=== PATIENT | male | born 1960 | race Caucasian/White ===

== ENCOUNTER 2022-04-02 17:10 | Observation (INO) | payer BC ==
[2022-04-02 17:41] LABS: #Basophils 0.1 10x3/uL (0.0-0.2); #Eosinphils 0.2 10x3/uL (0.0-0.5); #Monocytes 0.9 10x3/uL (0.0-1.1); #Neutrophils 7.5 10x3/uL (1.5-8.4); %Eosinophils 1.9 % (0.0-6.0); %Lymphocytes 17.1 % (18.0-47.0); %Monocytes 8.3 % (0.0-10.0); %Neutrophils 70.9 % (40.0-75.0); Hemoglobin 15.3 g/dL (13.5-17.5); Mean Corpuscular HGB CONC 32.3 g/dL (32.0-36.0); Mean Corpuscular Hemoglobin 26.6 pg (27.0-33.0); Mean Corpuscular Volume 82.3 fl (81.2-95.1); Mean Platelet Volume 9.2 fl (7.4-10.4); Platelet Count 350 10x3/uL (150-450); RBC Distribution Width 15.7 % (11.5-14.5); Red Blood Cell (RBC) Count 5.76 10x6/uL (4.32-5.72); White Blood Cell (WBC) Count 10.5 10x3/uL (3.5-10.5)
[2022-04-02] MEDS ORDERED: Aspirin Chewable 81 MG TAB ONE (17:56)
[2022-04-02] MEDS ORDERED: Nitroglycerin 0.4 MG TAB 1 EACH ONE (17:56)
[2022-04-02 17:58] LABS: ALT (SGPT) 41 U/L (8-55); AST (SGOT) 49 U/L (5-34); Albumin 4.5 g/dL (3.4-4.8); Alkaline Phosphatase 46 U/L (40-110); Anion Gap 16 mmol/L (10-20); BUN (Urea Nitrogen) 25 mg/dL (8.4-25.7); Bilirubin, Total 0.5 mg/dL (0.2-1.2); Calc. Creatinine Clearance 0 mL/min (70-130); Carbon Dioxide 27 mmol/L (23-31); Chloride 101 mmol/L (98-107); Glucose 91 mg/dL (80-115); Potassium 4.5 mmol/L (3.5-5.1); Protein, Total 7.5 g/dL (5.8-8.1); Sodium 139 mmol/L (136-145)
[2022-04-02] MEDS ORDERED: Morphine 4 MG/ML VIAL ONE (18:05)
[2022-04-02] MEDS ORDERED: Ondansetron PF 4 MG/2 ML Vial ONE (18:06)
[2022-04-02] MEDS ORDERED: Acetaminophen 500 MG TAB ONE (19:11)
[2022-04-02] MEDS ORDERED: Senokot S 8.6-50 MG TAB PO PRN (20:10)
[2022-04-02] MEDS ORDERED: Guaifenesin DM 100-10/5 ML UDCUP PO PRN (20:10)
[2022-04-02] MEDS ORDERED: Zolpidem Tartrate 5 MG TAB PO PRN (20:10)
[2022-04-02] MEDS ORDERED: Ondansetron PF 4 MG/2 ML Vial IVP PRN (20:10)
[2022-04-02] MEDS ORDERED: Acetaminophen 325 MG TAB PO PRN (20:10)
[2022-04-02] MEDS ORDERED: Calcium Carbonate 500 MG ChewTAB PO PRN (20:10)
[2022-04-02] MEDS ORDERED: HYDROcodone/Acetaminophen 5/325 mg Tablet PO PRN (20:10)
[2022-04-02] MEDS ORDERED: ALPRAZolam 1 MG TAB PO PRN (20:14)
[2022-04-02] MEDS ORDERED: Lactated Ringer's 500 ML IV SCH (20:15)
[2022-04-02 20:22] VITALS: BMI 34.9
[2022-04-02] MEDS: Lactated Ringer's 500 ML IV SCH (20:48)
[2022-04-02] MEDS ORDERED: Fish Oil 1,000 MG CAP PO SCH (21:00)
[2022-04-02] MEDS ORDERED: Famotidine/PF 20 mg/2ml Vial SLOW IVP SCH (21:00)
[2022-04-02] MEDS: Nitroglycerin 0.4 MG TAB (25 Tab Bottle) SL PRN ×2 (21:24→21:30)
[2022-04-02] MEDS ORDERED: Morphine 2 MG/ML VIAL SLOW IVP SCH (22:00)
[2022-04-02] MEDS ORDERED: Lidocaine Viscous Sol 2% 15 ml UD Cup ONE (22:26)
[2022-04-02 22:48] LABS: CKMB 6.4 ng/mL (0-6.6)
[2022-04-02] MEDS ORDERED: Enoxaparin Sodium 120 MG/0.8 ML SYRINGE SC SCH (23:00)
[2022-04-02] MEDS ORDERED: Metoprolol Tartrate 5 MG/5 ML VIAL IVP SCH (23:00)
[2022-04-02] MEDS ORDERED: Lidocaine 2% Viscous Solution 10 ML, Aluminum & Magnesium Hydroxide 30 ML SSW SCH (23:00)
[2022-04-02] MEDS ORDERED: Lactated Ringer's 1,000 ML IV SCH (23:45)
[2022-04-03] MEDS ORDERED: Ketorolac Tromethamine 30 MG/ML VIAL IVP SCH (00:15)
[2022-04-03] MEDS: Morphine 2 MG/ML VIAL SLOW IVP PRN ×3 (02:01→09:19)
[2022-04-03] MEDS ORDERED: Morphine 2 MG/ML VIAL SLOW IVP SCH (02:30)
[2022-04-03 05:39] LABS: Anion Gap 14 mmol/L (10-20); BUN (Urea Nitrogen) 27 mg/dL (8.4-25.7); Calc. Creatinine Clearance 130 mL/min (70-130); Calcium 9.2 mg/dL (7.8-10.44); Carbon Dioxide 27 mmol/L (23-31); Cardiac Risk 4.6 (Less than 4.5); Chloride 102 mmol/L (98-107); Cholesterol 151 mg/dl (< 200 Desired); HDL Cholesterol 33 mg/dL (>60 Neg Risk); LDL Cholesterol, Calculated 64 mg/dL; Lipase 63 U/L (8-78); Potassium 3.7 mmol/L (3.5-5.1); Sodium 139 mmol/L (136-145); Triglycerides 268 mg/dL (Less than 150)
[2022-04-03 05:45] LABS: Glucose 54 mg/dL (80-115)
[2022-04-03 06:11] LABS: SARS-CoV-2 NAA Rapid Test Not Detected (NotDetected)
[2022-04-03 06:53] LABS: CKMB 6.1 ng/mL (0-6.6)
[2022-04-03] MEDS ORDERED: metFORMIN XR 500 MG TAB PO SCH ×2 (08:00→17:00)
[2022-04-03] MEDS ORDERED: Communication Order-Pharmacy FS SCH (08:45)
[2022-04-03] MEDS ORDERED: Bupropion 150 MG XL TAB PO SCH (09:00)
[2022-04-03] MEDS ORDERED: Finasteride 5 MG TAB PO SCH (09:00)
[2022-04-03] MEDS ORDERED: Aspirin 81 mg Enteric Coated Tablet PO SCH (09:00)
[2022-04-03] MEDS ORDERED: Cholecalciferol 1,000 UNITS (25 MCG) TAB PO SCH (09:00)
[2022-04-03] MEDS ORDERED: Rosuvastatin 10 MG TAB PO SCH (09:00)
[2022-04-03] MEDS ORDERED: Losartan Potassium 50 MG TAB PO SCH (09:00)
[2022-04-03] MEDS ORDERED: Clopidogrel Bisulfate 75 MG TAB PO SCH (09:00)
[2022-04-03] MEDS ORDERED: Tamsulosin HCl 0.4 MG CAP PO SCH (09:00)
[2022-04-03] MEDS ORDERED: Empagliflozin 25 MG TAB PO SCH (09:00)
[2022-04-03] MEDS ORDERED: Enoxaparin Sodium 40 MG/0.4 ML SYRINGE SC SCH ×2 (09:00→21:00)
[2022-04-03] MEDS ORDERED: Fenofibrate Nanocrystallized 145 MG TAB PO SCH (09:00)
[2022-04-03] MEDS ORDERED: Multivit, Therapeutic 1 TAB PO SCH (09:00)
[2022-04-03] MEDS ORDERED: Bisoprolol Fumarate 5 MG TAB PO SCH (09:00)
[2022-04-03] MEDS ORDERED: Iopamidol 300 61% 100 ML VIAL FS ONE (09:11)
[2022-04-03 09:22] LABS: CKMB 6.4 ng/mL (0-6.6)
[2022-04-03 09:55] LABS: INR-International Normal Ratio 1.1; PTT 30.9 sec (22.0-33.0); Prothrombin Time 11.5 sec (9.5-12.1)
[2022-04-03] MEDS ORDERED: Bivalirudin 250 MG VIAL ONE (10:18)
[2022-04-03] MEDS ORDERED: Nitroglycerin 50 MG/250 ML BOT 250 ML ONE (10:20)
[2022-04-03] MEDS ORDERED: Heparin 10,000 UNITS/ 10 ML VIAL ONE ×3 (10:20→12:02)
[2022-04-03] MEDS ORDERED: Lidocaine 1% (PF) 30 ML VIAL ONE (10:21)
[2022-04-03] MEDS ORDERED: Verapamil 5 MG/2 ML VIAL ONE (10:21)
[2022-04-03] MEDS ORDERED: Midazolam HCl 2 mg/2 ml Vial ONE ×2 (10:22→11:33)
[2022-04-03] MEDS ORDERED: Fentanyl 100 MCG/2 ML VIAL ONE (10:22)
[2022-04-03 11:02] LABS: Troponin I 0.176 ng/mL (< 0.028)
[2022-04-03] MEDS: Lactated Ringer's 500 ML IV SCH ×2 (11:24→11:25)
[2022-04-03] MEDS ORDERED: Nitroglycerin 0.4 MG TAB (25 Tab Bottle) SL PRN (12:01)
[2022-04-03] MEDS ORDERED: Acetaminophen/Codeine 30-300mg Tablet PO PRN ×2 (12:01)
[2022-04-03] MEDS ORDERED: Sodium Chloride 0.9% 200 ML IV PRN (12:01)
[2022-04-03 19:00] VITALS: TEMP 97.9
[2022-04-03 19:56] VITALS: BP 116/68
[2022-04-03] MEDS ORDERED: TICAGRELOR 90 MG TABLET PO SCH (21:00)
[2022-04-04] MEDS ORDERED: Empagliflozin 25 MG TAB PO SCH (09:00)
== END 2022-04-03 19:30 | disposition home or self-care (01) ==
LOC: CSHERS 17:10 → CSHTELE 19:48
PROVIDERS: ADMIT Student in an Organized Health Care Education/Training Program; ATTEND Emergency Medicine
DX: I25.110 Atherosclerotic heart disease of native coronary artery with unstable angina pectoris (principal); I10 Essential (primary) hypertension; E78.5 Hyperlipidemia, unspecified; K21.9 Gastro-esophageal reflux disease without esophagitis; E11.9 Type 2 diabetes mellitus without complications; R91.8 Other nonspecific abnormal finding of lung field; Z79.899 Other long term (current) drug therapy; Z79.82 Long term (current) use of aspirin; Z95.5 Presence of coronary angioplasty implant and graft; N40.0 Benign prostatic hyperplasia without lower urinary tract symptoms; Z87.891 Personal history of nicotine dependence; Z79.84 Long term (current) use of oral hypoglycemic drugs; N19 Unspecified kidney failure; Z79.02 Long term (current) use of antithrombotics/antiplatelets; Z20.822 Contact with and (suspected) exposure to COVID-19
CPT/HCPCS: 36415; 36416; 71045; 80048; 80053; 80061; 82550; 82553; 83690; 84484; 85025; 85347; 85379; 85610; 85730; 86140; 92928; 92978; 93005; 93458; 96372; 96374; 96375; 96376; 99152; 99153; C1753; C1769; C1874; C1887; C1894; C9600; G0378; J0583; J1644; J1650; J1885; J2001; J2250; J2270; J2405; J3010; J7120; Q9967; S0028; U0002